=== PATIENT | female | born 1995 | race Caucasian/White ===

== ENCOUNTER 2017-07-06 10:20 | Emergency (ER) | payer OTHER ==
[2017-07-06] MEDS: FAMOTIDINE 20 MG TAB PO (11:23)
[2017-07-06] MEDS: DIPHENHYDRAMINE 50 MG INJ IM (11:23)
[2017-07-06] MEDS: METHYLPREDNISOLONE 125 MG INJ IM (11:23)
== END 2017-07-06 12:26 | disposition home or self-care (01) ==
LOC: FTE 10:20
DX: R21 Rash and other nonspecific skin eruption (principal); F17.210 Nicotine dependence, cigarettes, uncomplicated
CPT/HCPCS: 96372; 99284-25